=== PATIENT | female | born 1990 | race Asian ===

== ENCOUNTER 2016-09-21 14:54 | Emergency (ER) | payer SELFPAY ==
[~2016-09-21] VITALS: Ht 154.9 cm; Wt 47.7 kg
[2016-09-21 16:44] LABS: ASPARTATE AMINO TRANSFERASE 20 U/L (15-37); BLOOD UREA NITROGEN 6 mg/dL (7-18)
[2016-09-21] MEDS ORDERED: PREN1TAB69 PO (19:59)
[2016-09-21 20:21] VITALS: BP 107/67
== END 2016-09-21 20:25 | disposition home or self-care (01) ==
LOC: ED 20:19
DX: O20.0 Threatened abortion (principal); Z3A.01 Less than 8 weeks gestation of pregnancy
CPT/HCPCS: 36415; 76801; 80053; 81003; 84702; 85025; 87210; 87491; 87591; 87808; 99285